=== PATIENT | female | born 1940 | race Caucasian/White ===

== ENCOUNTER 2019-02-02 09:53 | Outpatient (CLI) | payer OTHER | END 2019-02-02 10:07 | disposition home or self-care (01) | LOC: MAMO-SONO 09:53 | DX: Z12.31 Encounter for screening mammogram for malignant neoplasm of breast (principal); Z87.898 Personal history of other specified conditions ==

== ENCOUNTER 2022-06-26 10:17 | Outpatient (CLI) | payer OTHER | END 2022-06-26 15:24 | disposition home or self-care (01) | LOC: MAMO-SONO 10:17 → SCREENING 10:17 → MAMO-SONO 15:24 | DX: Z12.31 Encounter for screening mammogram for malignant neoplasm of breast (principal) ==

== ENCOUNTER 2022-08-07 10:02 | Outpatient (CLI) | payer OTHER | END 2022-08-07 10:07 | disposition home or self-care (01) | LOC: SONOGRAMA 10:02 | DX: N60.11 Diffuse cystic mastopathy of right breast (principal); N60.12 Diffuse cystic mastopathy of left breast ==

== ENCOUNTER 2023-06-11 10:36 | Outpatient (CLI) | payer OTHER | END 2023-06-11 10:40 | disposition home or self-care (01) | LOC: RAD 10:36 | PROVIDERS: ATTEND Family Medicine | DX: R05.1 Acute cough (principal) ==

== ENCOUNTER 2024-07-12 09:21 | Outpatient (CLI) | payer OTHER | END 2024-07-12 09:32 | disposition home or self-care (01) | LOC: MAMO-SONO 09:21 | PROVIDERS: ATTEND Family Medicine | DX: Z12.31 Encounter for screening mammogram for malignant neoplasm of breast (principal) ==

== ENCOUNTER 2024-10-13 15:30 | Outpatient (CLI) | payer OTHER | END 2024-10-13 15:34 | disposition home or self-care (01) | LOC: RAD 15:30 | PROVIDERS: ATTEND Family Medicine | DX: R05.1 Acute cough (principal) ==